=== PATIENT | male | born 1990 | race Caucasian/White ===

== ENCOUNTER 2016-12-30 20:10 | Emergency (ER) | payer MEDICAID ==
[2016-12-30 20:38] VITALS: TEMP 97.3
[2016-12-30 21:24] VITALS: BP 142/90; PULSE 60; RESP 25; O2SAT 99
== END 2016-12-30 21:03 | disposition home or self-care (01) | DRG 313 ==
LOC: ED 20:10
DX: R07.89 Other chest pain (principal)
CPT/HCPCS: 93005; 99283; 99284

== ENCOUNTER 2018-07-03 00:09 | Emergency (ER) | payer MEDICAID, OTHER ==
[2018-07-03 00:21] VITALS: RESP 16; TEMP 96.8
[2018-07-03 00:23] VITALS: BP 146/96; PULSE 84; O2SAT 96
[2018-07-03] MEDS ORDERED: DIPHENHYDRAMINE 25 MG CAP PO ONE (00:49)
[2018-07-03] MEDS ORDERED: DIPHENHYDRAMINE 25 MG CAP ONE (00:50)
== END 2018-07-03 01:00 | disposition home or self-care (01) | DRG 153 ==
LOC: SUPCPDRO 00:09 → ED 00:09
DX: J06.9 Acute upper respiratory infection, unspecified (principal)
CPT/HCPCS: 99282; A9270-GY